=== PATIENT | male | born 1995 | race Caucasian/White ===

== ENCOUNTER 2017-08-27 17:16 | Emergency (ER) | payer BC, MEDICAID ==
[2017-08-27 17:28] VITALS: BP 152/93
[2017-08-27] MEDS ORDERED: Tetracaine HCl/PF 0.5% 4 ML Bottle EYEBOTH ONE (17:34)
[2017-08-27] MEDS ORDERED: Fluorescein 1 MG Ophth Strip EYEBOTH ONE ×3 (17:35→18:56)
--- NOTE | 2017-08-27 18:50 | EDM.PDOC ---
ED HPI GENERAL MEDICAL PROBLEM - General Chief Complaint: Eye Problems Stated Complaint: EYE PROBLEM, [id number] Time Seen by Provider: 08/27/17 18:09 Source of Information: Reports: Patient, RN, RN Notes Reviewed History Limitations: Reports: No Limitations - History of Present Illness INITIAL COMMENTS - FREE TEXT/NARRATIVE: Pt presents to the ER with c/o left eye pain. He states he was grinding metal yesterday. He did not notice getting in his eye initially, but pain progressively got worse last evening. He denies fever or chills, nausea or vomiting. States vision is blurred at times. Onset: Sudden Onset Date: 08/26/17 Quality: Reports: Burning, Sharp Severity: Moderate Improves with: Reports: None Worsens with: Reports: None Associated Symptoms: Reports: No Other Symptoms Left Eye Pain Score (Numeric/FACES): 6 - Related Data Allergies Allergy/AdvReac Type Severity Reaction Status Date / Time No Known Allergies Allergy Verified 08/27/17 17:28 Home Meds: Home Meds . [No Known Home Meds] 08/19/14 [History] Past Medical History - Past Health History Medical/Surgical History: Denies Medical/Surgical History Social & Family History - Family History Family Medical History: Noncontributory - Tobacco Use Smoking Status *Q: Never Smoker Second Hand Smoke Exposure: No - Caffeine Use Caffeine Use: Reports: None - Alcohol Use Days Per Week of Alcohol Use: 0 - Recreational Drug Use Recreational Drug Use: No ED ROS GENERAL - Review of Systems Review Of Systems: ROS reveals no pertinent complaints other than HPI. ED EXAM GENERAL W FULL EYE - Physical Exam Exam: See Below Exam Limited By: No Limitations General Appearance: Alert, WD/WN, Mild Distress Eye Exam: Right Eye: Normal Inspection, Left Eye: Conjunctival Injection, Bilateral Eye: EOMI, Other (wears glasses) Visual Acuity (R) 20/: 25 Visual Acuity (L) 20/: 30 With Correction: Yes Eyelids: Left: Lid Everted for Exam, Bilateral: Normal Appearance Conjunctiva & Sclera: Right: Normal Appearance, Left: Injected Cornea Exam: Right: Normal Appearance, Left: Examined with Flourescein Extraocular Movements: Bilateral: Intact Pupils: Normal Accommodation Pupillary Size: Bilateral: 4 mm Pupillary Reaction: Bilateral: Brisk Ears: Normal External Exam, Hearing Grossly Normal Nose: Normal Inspection Throat/Mouth: Normal Inspection, Normal Voice, No Airway Compromise Head: Atraumatic, Normocephalic Neck: Normal Inspection, Supple, Non-Tender, Full Range of Motion Respiratory/Chest: No Respiratory Distress, Lungs Clear, Normal Breath Sounds, No Accessory Muscle Use, Chest Non-Tender Cardiovascular: Normal Peripheral Pulses, Regular Rate, Rhythm, No Edema, No Gallop, No JVD, No Murmur, No Rub GI/Abdominal: Normal Bowel Sounds, Soft, Non-Tender, No Organomegaly, No Distention, No Abnormal Bruit, No Mass (Male) Exam: Deferred (Female) Exam: Deferred Rectal (Males) Exam: Deferred Rectal (Female) Exam: Deferred Back Exam: Normal Inspection, Full Range of Motion Extremities: Normal Inspection, Normal Range of Motion, Non-Tender, No Pedal Edema, Normal Capillary Refill Neurological: Alert, Oriented, Normal Cognition, Normal Gait, No Motor/Sensory Deficits Psychiatric: Normal Affect, Normal Mood Skin Exam: Warm, Dry, Intact, Normal Color, No Rash Lymphatic: No Adenopathy ED EYE w/ Add Procedure - Eye Procedure Alcaine Drops Administered: Yes Eye FB Removal: Removal w/ Cotton Swab, Removal w/ Needle Eye Irrigated w/ Saline (ccs): 0 Antibiotic Oinment/Drps Admin: Left Eye Course - Vital Signs Last Recorded V/S: Last Vital Signs Temp 96.8 F 08/27/17 17:22 Pulse 97 08/27/17 17:22 Resp 16 08/27/17 17:22 BP 152/93 H 08/27/17 17:22 Pulse Ox 100 08/27/17 17:22 - Orders/Labs/Meds Orders: Active Orders 24 hr Category Date Time Status Erythromycin Base [Erythromycin 0.5% Ophth Oint] Med 08/27/17 19:11 Once 1 gm EYEBOTH ONETIME ONE Meds: Medications Discontinued Medications Generic Name Dose Route Start Last Admin Trade Name Salvador PRN Reason Stop Dose Admin Fluorescein Sodium 1 mg 08/27/17 17:35 08/27/17 17:40 Ful-Ana EYEBOTH 08/27/17 17:36 1 mg ONETIME ONE Administration Fluorescein Sodium 1 mg 08/27/17 18:19 08/27/17 18:25 Ful-Ana EYEBOTH 08/27/17 18:20 1 mg ONETIME ONE Administration Fluorescein Sodium 1 mg 08/27/17 18:56 08/27/17 19:00 Ful-Ana EYEBOTH 08/27/17 18:57 1 mg ONETIME ONE Administration Tetracaine HCl 1 ml 08/27/17 17:34 08/27/17 17:39 Tetracaine 0.5% Steri-Unit Katie EYEBOTH 08/27/17 17:35 1 drop ASDIRECTED ONE Administration Departure - Departure Time of Disposition: 19:12 Disposition: Home, Self-Care 01 Clinical Impression: Corneal abrasion Qualifiers: Encounter type: initial encounter Laterality: left Qualified Code(s): S05.02XA - Injury of conjunctiva and corneal abrasion without foreign body, left eye, initial encounter Eye foreign bodies Qualifiers: Encounter type: initial encounter Laterality: left Qualified Code(s): T15.92XA - Foreign body on external eye, part unspecified, left eye, initial encounter - Discharge Information Forms: ED Department Discharge Additional Instructions: Erythromycin ointment 4 times daily wear dark glasses Follow up with an eye doctor right away on Tuesday. - My Orders Last 24 Hours: My Active Orders 08/27/17 19:11 Erythromycin Base [Erythromycin 0.5% Ophth Oint] 1 gm EYEBOTH ONETIME ONE - Assessment/Plan Last 24 Hours: My Active Orders 08/27/17 19:11 Erythromycin Base [Erythromycin 0.5% Ophth Oint] 1 gm EYEBOTH ONETIME ONE
[2017-08-27] MEDS ORDERED: Erythromycin Base 0.5% Ophth Oint 1 GM Tube EYEBOTH ONE (19:11)
[2017-08-27] MEDS ORDERED: Gentamicin 0.3% Ophth Soln 5 ML Bottle EYELF SCH (21:00)
== END 2017-08-27 19:42 | disposition home or self-care (01) ==
LOC: DL.ED 17:16
DX: T15.92XA Foreign body on external eye, part unspecified, left eye, initial encounter (principal)
CPT/HCPCS: 65205; 99282; 99283; A9270

== ENCOUNTER 2018-04-29 10:48 | Emergency (ER) | payer OTHER ==
[2018-04-29 11:25] VITALS: BP 165/106
[2018-04-29] MEDS ORDERED: Ibuprofen 800 MG Tab PO ONE (11:52)
[2018-04-29] MEDS ORDERED: Ondansetron 4 MG Tab.DIS PO ONE (11:53)
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
== END 2018-04-29 12:08 | disposition home or self-care (01) ==
LOC: DL.ED 10:48
DX: S06.0X0A Concussion without loss of consciousness, initial encounter (principal); G44.309 Post-traumatic headache, unspecified, not intractable; V49.40XA Driver injured in collision with unspecified motor vehicles in traffic accident, initial encounter
CPT/HCPCS: 99283; A9270

== ENCOUNTER 2018-09-19 16:13 | Emergency (ER) | payer OTHER ==
[2018-09-19 16:06] VITALS: BP 189/112
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
== END 2018-09-19 16:26 | disposition home or self-care (01) ==
LOC: DL.ED 16:13
DX: T65.891A Toxic effect of other specified substances, accidental (unintentional), initial encounter (principal); R03.0 Elevated blood-pressure reading, without diagnosis of hypertension
CPT/HCPCS: 99285

== ENCOUNTER 2020-03-26 20:25 | Emergency (ER) | payer SELFPAY ==
[2020-03-26 20:40] VITALS: PULSE 79
[2020-03-26] MEDS ORDERED: Bupivacaine 0.5% 30 ML SDV INJECT ONE (20:45)
[2020-03-26] MEDS ORDERED: Lidocaine 1% 30 ML SDV INJECT ONE (20:45)
[2020-03-26] MEDS ORDERED: Diphtheria,Pertussis(Acell),Tetanus Vaccine 0.5 ML SDV IM ONE (20:52)
[2020-03-26 22:23] VITALS: BP 130/59
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
--- NOTE | 2020-03-26 23:02 | EDM.PDOC ---
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 It jump broke and shattered and injured his left forearm. He sustained a laceration on the mid volar surface of the left forearm as well as the distal volar surface of his left forearm right at the volar surface of the wrist. He denies any paresthesias to his hand. He denies any change in the functionality to his left hand. His tetanus shot is unknown of when the last time this happened. He denies any other injury. Left Arm Pain Score (Numeric/FACES): 6 - Related Data Allergies Allergy/AdvReac Type Severity Reaction Status Date / Time No Known Allergies Allergy Verified 03/26/20 20:36 Home Meds: Home Meds . [No Known Home Meds] 08/19/14 [History] Past Medical History - Past Health History Medical/Surgical History: Denies Medical/Surgical History HEENT History: Reports: Impaired Vision Other HEENT History: wears glasses Cardiovascular History: Reports: Hypertension Respiratory History: Reports: None Gastrointestinal History: Reports: None Genitourinary History: Reports: None Musculoskeletal History: Reports: Back Pain, Chronic Neurological History: Reports: Concussion Psychiatric History: Reports: None Endocrine/Metabolic History: Reports: None Hematologic History: Reports: None Immunologic History: Reports: None Oncologic (Cancer) History: Reports: None Dermatologic History: Reports: None - Past Surgical History Head Surgeries/Procedures: Reports: None Social & Family History - Family History Family Medical History: Noncontributory - Tobacco Use Smoking Status *Q: Former Smoker Used Tobacco, but Quit: No - Caffeine Use Caffeine Use: Reports: Energy Drinks, Soda Other Caffeine Use: 1/day - Recreational Drug Use Recreational Drug Use: No - Living Situation & Occupation Living situation: Reports: with Significant Other ED ROS GENERAL - Review of Systems Review Of Systems: Comprehensive ROS is negative, except as noted in HPI. ED EXAM, SKIN/RASH Exam: See Below Exam Limited By: No Limitations General Appearance: Alert, WD/WN, No Apparent Distress Respiratory/Chest: No Respiratory Distress Cardiovascular: Normal Peripheral Pulses Peripheral Pulses: 2+: Radial (L), Radial (R) Extremities: No: Normal Inspection (On the volar surface of the left forearm on the very mid aspect of the forearm there is a 5 cm versus laceration into the subcutaneous tissue with foreign material and debris in the area. This is gaping about 1 cm. There is also just distally to this some very superficial abrasions with foreign material superficially as well. On the volar surface of the distal wrist there is a 3 cm transverse linear stellate laceration as well. This extends into the subcutaneous tissue. The patient is able to flex and extend at the wrist appropriately. As well as the DIP PIP and the rest of the joints of the left hand. The CMS is intact appropriately.) Neurological: Alert, Oriented, Normal Cognition, No Motor/Sensory Deficits Psychiatric: Normal Affect, Normal Mood Skin: Warm, Dry, Intact, Normal Color, No Rash ED SKIN PROCEDURES - Laceration/Wound Repair Left Ventral Arm Appearance: Subcutaneous, Linear, Heavily Contaminated Distal NVT: Neuro & Vascular Intact Anesthetic Type: Local Local Anesthesia - Lidocaine (Xylocaine): 1% Plain Local Anesthesia - Bupivicaine (Marcaine): 0.5% Plain Local Anesthetic Volume: Other (10) Skin Prep: Chlorhexidine (Hibiciens), Saline Saline Irrigation (cc's): 500 Exploration/Debridement/Repair: Wound Explored, In a Bloodless Field, Explored to Base, Moderate Debridement, Foreign Material Removed Closed with: Sutures Lac/Wound length In cm: 5 Suture Size: 4-0 Suture Type: Nylon Suture Size: 3-0 Repaired with: Vicryl Tetanus Status Addressed: Yes Left Proximal Ventral Arm Appearance: Subcutaneous, Linear, Stellate, Irregular, Moderately Contaminated Distal NVT: Neuro & Vascular Intact, No Tendon Injury Anesthetic Type: Local Local Anesthesia - Lidocaine (Xylocaine): 1% Plain Local Anesthesia - Bupivicaine (Marcaine): 0.5% Plain Local Anesthetic Volume: 5cc Skin Prep: Chlorhexidine (Hibiciens), Saline Saline Irrigation (cc's): 500 Exploration/Debridement/Repair: Wound Explored, In a Bloodless Field, Explored to Base, Moderate Debridement, Foreign Material Removed Closed with: Sutures Lac/Wound length In cm: 3 Suture Size: 4-0 Suture Type: Nylon Sterile Dressing Applied: Provider Tetanus Status Addressed: Yes Course - Vital Signs Last Recorded V/S: Last Vital Signs Temp 96.7 F L 03/26/20 20:39 Pulse 79 03/26/20 20:39 Resp 18 03/26/20 20:39 BP 130/59 L 03/26/20 22:23 Pulse Ox 97 03/26/20 20:39 - Orders/Labs/Meds Orders: Active Orders 24 hr Category Date Time Status Vaccines to be Administered [RC] PER UNIT ROUTINE Care 03/26/20 20:52 Active Meds: Medications Discontinued Medications Generic Name Dose Route Start Last Admin Trade Name Salvador PRN Reason Stop Dose Admin Bacitracin 2 dose 03/26/20 23:12 03/26/20 23:15 Bacitracin Oint 1 Gm TOP 03/26/20 23:13 2 dose ONETIME ONE Administration Bupivacaine HCl 30 ml 03/26/20 20:45 03/26/20 20:49 Marcaine 0.5% INJECT 03/26/20 20:46 30 ml ONETIME ONE Administration Cephalexin 500 mg 03/26/20 23:03 03/26/20 23:15 Keflex PO 03/26/20 23:04 500 mg ONETIME ONE Administration Diphtheria/Tetanus/Acell Pertussis 0.5 ml 03/26/20 20:52 03/26/20 20:57 Adacel IM 03/26/20 20:53 0.5 ml .ONCE ONE Administration Lidocaine HCl 30 ml 03/26/20 20:45 03/26/20 20:48 Xylocaine-Mpf 1% INJECT 03/26/20 20:46 30 ml ONETIME ONE Administration - Re-Assessments/Exams Free Text/Narrative Re-Assessment/Exam: 03/26/20 22:58 Initially the wound was cleansed with quite aggressively with 1 L of sterile saline as well as chlorhexidine solution. I was able to remove multiple pieces of large hard debris within the wound after this area was anesthetized with 1% lidocaine without epinephrine and 0.5% bupivacaine with good anesthesia. I was explored the wound thoroughly primarily the mid volar forearm. It did not extend into the fascia. There is no tendon damage. I also removed multiple more foreign body material. The left distal wrist laceration was visible cleansed and explored in a very similar fashion I did not identify any foreign material. Did complete an x-ray after the rinsing and exploration of the wound and it appears that there is still a couple of small foreign bodies in the area. I was able to return and remove 3 larger pieces of debris from the grinding wheel. There were also multiple other small tiny little debris that I am unable to remove with even very aggressive rinsing scrubbing but these are very small and finite. Tetanus immunization was updated. Please see procedure note for the closing of these lacerations. Departure - Departure Time of Disposition: 23:05 Disposition: Home, Self-Care 01 Clinical Impression: Laceration with foreign body Abrasion of arm, left Qualifiers: Encounter type: initial encounter Qualified Code(s): S40.812A - Abrasion of left upper arm, initial encounter - Discharge Information Instructions: Laceration Care, Adult, [id number], Pain Medicine Instructions, [id number] Referrals: PCP,None [Primary Care Provider] - Forms: ED Department Discharge Additional Instructions: Cleanse the wound twice daily with soap and water. Bacitracin and bandage until healed. Cephalexin 1 capsule 4 times a day for the next 7 days. RX given to the patient. Watch for signs of infection. Return to the ED if new or worsening symptoms. Follow up with PCP in the next 7 days for suture removal and recheck. Sepsis Event Note (ED) - Evaluation Sepsis Screening Result: No Definite Risk - Focused Exam Vital Signs: Vital Signs Temp Pulse Resp BP Pulse Ox 03/26/20 22:23 130/59 L 03/26/20 20:39 96.7 F L 79 18 136/94 H 97 03/26/20 20:32 16 134/96 H - My Orders Last 24 Hours: My Active Orders 03/26/20 20:52 Vaccines to be Administered [RC] PER UNIT ROUTINE - Assessment/Plan Last 24 Hours: My Active Orders 03/26/20 20:52 Vaccines to be Administered [RC] PER UNIT ROUTINE Assessment:: laceration on the volar surface of the left forearm 5cm and 3cm sutured with moderated amount of contamination and foreign material removed. over 1.25 hrs was spent in washing and foreign material removal and suturing of this injury. Abrasions to the left forearm as well. Plan: Cleanse the wound twice daily with soap and water. Bacitracin and bandage until healed. Cephalexin 1 capsule 4 times a day for the next 7 days. RX given to the patient. Watch for signs of infection. Return to the ED if new or worsening symptoms. Follow up with PCP in the next 7 days for suture removal and recheck.
[2020-03-26] MEDS ORDERED: Cephalexin 500 MG Cap PO ONE (23:03)
[2020-03-26] MEDS ORDERED: Bacitracin Oint 1 GM U/D Packet TOP ONE (23:12)
== END 2020-03-26 23:20 | disposition home or self-care (01) ==
LOC: DL.ED 20:25
DX: S51.822A Laceration with foreign body of left forearm, initial encounter (principal); S61.512A Laceration without foreign body of left wrist, initial encounter; I10 Essential (primary) hypertension; Z87.891 Personal history of nicotine dependence; Z23 Encounter for immunization; W26.8XXA Contact with other sharp object(s), not elsewhere classified, initial encounter
CPT/HCPCS: 12034; 73090; 90471; 90715; 99283; A9270; J2001; J3490